=== PATIENT | female | born 1935 ===

== ENCOUNTER 2019-07-02 19:56 | Inpatient (IN) | payer OTHER ==
[~2019-07-02] VITALS: Ht 160 cm; Wt 54.4 kg
[2019-07-02] MEDS ORDERED: ATENOLOL50 MG (20:00)
[2019-07-02] MEDS ORDERED: PLAVIX75 MG (20:00)
[2019-07-02] MEDS ORDERED: FOSAMAX70 MG (20:00)
[2019-07-02] MEDS ORDERED: LIPITOR40 MG (20:00)
[2019-07-02] MEDS ORDERED: SULFATO FERROSO (20:01)
[2019-07-02] MEDS ORDERED: KEPPRA500 MG (20:02)
[2019-07-02] MEDS ORDERED: GLYCOTROL CAPS1 EACH (20:02)
[2019-07-02] MEDS ORDERED: HUMALOG100 UNIT/1 (20:02)
[2019-07-02] MEDS ORDERED: CARAFATE1 GM (20:02)
[2019-07-02] MEDS ORDERED: LANTUS SOL100 UNIT/1 SUBCUTANEO (20:03)
[2019-07-02] MEDS ORDERED: MINITRAN1 EAC2 (20:03)
--- NOTE | 2019-07-02 20:07 | NUR ---
SE RECIBE PTE EN COMPANIA DE FAMILIAR.FAMILIAR INDICA QUE PTE FUE REFERIDA A ER POR EL POR ULCERA EN AREA SACRAL Y EN EL PIE DERECHO EN EL CINTHIA DEDO.
--- NOTE | 2019-07-02 21:06 | NUR ---
PACIENTE ALERTA CON HX DE ALZHERIMER EN ARTHUR CON BARANDAS ELEVADAS. SE ORIENTA A PACINETE Y JOEL SOBRE PROCEDIMIENTO Y TX, REFIERE ENTENDER. SE EXTRAE MUESTRAS DE LABORATORIO CON MEDIDAS ASEPTICAS Y SE ENVIA A LABORATORIO.
[2019-07-03] MEDS ORDERED: FERROUS SULFAT325 MG (11:10)
== END 2019-07-22 16:50 | disposition home or self-care (01) | DRG 570 ==
LOC: ER 19:56 → MEDJ 22:15 → SEC-K 22:15 → MEDJ 07-03 01:19
PROVIDERS: ADMIT Internal Medicine
PROC: 8E0ZXY6 Isolation (ICD-10-PCS; 2019-07-02)
PROC: CP1Z1ZZ Planar Nuclear Medicine Imaging of Musculoskeletal System, All using Technetium 99m (Tc-99m) (ICD-10-PCS; 2019-07-03)
PROC: 30233N1 Transfusion of Nonautologous Red Blood Cells into Peripheral Vein, Percutaneous Approach (ICD-10-PCS; 2019-07-06)
PROC: B246ZZZ Ultrasonography of Right and Left Heart (ICD-10-PCS; 2019-07-07)
PROC: CP1ZYZZ Planar Nuclear Medicine Imaging of Musculoskeletal System, All using Other Radionuclide (ICD-10-PCS; 2019-07-07)
PROC: 0JBQ0ZZ Excision of Right Foot Subcutaneous Tissue and Fascia, Open Approach (ICD-10-PCS; principal; 2019-07-08)
PROC: 3E0336Z Introduction of Nutritional Substance into Peripheral Vein, Percutaneous Approach (ICD-10-PCS; 2019-07-10)
PROC: 4A033R1 Measurement of Arterial Saturation, Peripheral, Percutaneous Approach (ICD-10-PCS; 2019-07-11)
PROC: 3E0F7GC Introduction of Other Therapeutic Substance into Respiratory Tract, Via Natural or Artificial Opening (ICD-10-PCS; 2019-07-11)
PROC: 0DP64UZ Removal of Feeding Device from Stomach, Percutaneous Endoscopic Approach (ICD-10-PCS; 2019-07-22)
PROC: 0DH63UZ Insertion of Feeding Device into Stomach, Percutaneous Approach (ICD-10-PCS; 2019-07-22)
PROC: 3E0G76Z Introduction of Nutritional Substance into Upper GI, Via Natural or Artificial Opening (ICD-10-PCS; 2019-07-22)
DX: L89.154 Pressure ulcer of sacral region, stage 4 (principal); J69.0 Pneumonitis due to inhalation of food and vomit; B37.1 Pulmonary candidiasis; J15.29 Pneumonia due to other staphylococcus; E87.1 Hypo-osmolality and hyponatremia; L97.413 Non-pressure chronic ulcer of right heel and midfoot with necrosis of muscle; L97.528 Non-pressure chronic ulcer of other part of left foot with other specified severity; J91.8 Pleural effusion in other conditions classified elsewhere; K94.23 Gastrostomy malfunction; G30.1 Alzheimer's disease with late onset; F02.80 Dementia in other diseases classified elsewhere, unspecified severity, without behavioral disturbance, psychotic disturbance, mood disturbance, and anxiety; E88.09 Other disorders of plasma-protein metabolism, not elsewhere classified; Z74.01 Bed confinement status; D63.8 Anemia in other chronic diseases classified elsewhere; B96.89 Other specified bacterial agents as the cause of diseases classified elsewhere; B95.2 Enterococcus as the cause of diseases classified elsewhere; B95.61 Methicillin susceptible Staphylococcus aureus infection as the cause of diseases classified elsewhere; B95.62 Methicillin resistant Staphylococcus aureus infection as the cause of diseases classified elsewhere